=== PATIENT | male | born 1935 | race Caucasian/White ===

== ENCOUNTER 2020-02-25 20:28 | Emergency (ER) | payer MEDICARE, OTHER ==
[~2020-02-25] VITALS: Ht 182.9 cm; Wt 59.0 kg
[2020-02-25 21:00] LABS: CLARITY,URINE HAZY (CLEAR); COLOR,URINE YELLOW (YELLOW); LEUKOCYTE ESTERASE ,URINE SMALL (NEGATIVE); NITRITE,URINE POSITIVE (NEGATIVE)
[2020-02-25 21:01] LABS: BILIRUBIN,URINE NEGATIVE (NEGATIVE); KETONES,URINE NEGATIVE (NEGATIVE); PROTEIN,URINE DIPSTICK >=300 (NEGATIVE); URINE UROBILINOGEN 0.2 mg/dL (0.2 - 1)
[2020-02-25 21:12] LABS: BACTERIA,URINE MANY /HPF; WBC,URINE (MAN) 21-50 /HPF (0-5)
--- NOTE | 2020-02-25 21:22 | NUR ---
Daughter (Cata) left phone number if needed [phone]
[2020-02-25 21:44] LABS: BASOPHILS % 0.2 % (0.0-1.0); EOSINOPHILS % 0.3 % (0.0-6.0); HEMATOCRIT 30.3 % (38.2-49.6); LYMPHOCYTES # (AUTO) 1.4 (1.0-3.2); LYMPHOCYTES % 15.5 % (18.0-39.1); MEAN CORPUSCULAR HEMOGLOBIN 32.6 pg (28-32); MEAN CORPUSCULAR VOLUME 98.7 fL (81-99); MONOCYTES # (AUTO) 0.6 (0.2-0.8); MONOCYTES % 6.8 % (4.4-11.3); NEUTROPHILS # (AUTO) 6.9 (2.1-6.9); NEUTROPHILS % 76.5 % (38.7-80.0); PLATELET COUNT 241 x10e3/uL (140-360); RED BLOOD COUNT 3.07 x10e6/uL (4.3-5.7); RED CELL DISTRIBUTION WIDTH 15.8 % (11.7-14.4)
[2020-02-25] MEDS ORDERED: CIPROFLOXACIN 400 MG/D5W 200ML 200 ML IV SCH (22:00)
[2020-02-25 22:04] LABS: ALBUMIN 2.8 g/dL (3.5-5.0); ALBUMIN/GLOBULIN RATIO 0.8 (0.8-2.0); ANION GAP 15.2 mmol/L (8-16); CREATININE, SERUM 3.13 mg/dL (0.72-1.25); POTASSIUM 4.2 mmol/L (3.5-5.1)
[2020-02-25 22:10] LABS: CREATINE KINASE MB 5.5 ng/mL (0-5.0)
[2020-02-25] MEDS ORDERED: LORAZEPAM INJ 2 MG/ML VIAL IV ONE (22:30)
[2020-02-25] MEDS ORDERED: LORAZEPAM INJ 2 MG/ML VIAL ONE (22:30)
--- NOTE | 2020-02-25 23:44 | Diagnostic Imaging Report ---
EXAMINATION: CHEST SINGLE (PORTABLE) INDICATION: Dementia. COMPARISON: None FINDINGS: TUBES and LINES: None. LUNGS: Lungs are well inflated. Mild bibasilar patchy opacities. No evidence of lobar pneumonia. Calcified granulomas. PLEURA: No pleural effusion or pneumothorax. HEART AND MEDIASTINUM: The cardiomediastinal silhouette is unremarkable. There are atherosclerotic calcifications within the aorta. Calcified left hilar lymph nodes. BONES AND SOFT TISSUES: No acute osseous abnormality. Diffuse osteopenia. UPPER ABDOMEN: No free air under the diaphragm. IMPRESSION: Mild patchy bibasilar opacities, likely atelectasis. Infection is possible in the appropriate clinical setting. No evidence of lobar pneumonia. Signed by: Dr. Karen Bell MD on 02/25/2020 11:41 PM
--- NOTE | 2020-02-25 23:56 | Diagnostic Imaging Report ---
EXAM: CT Abdomen and Pelvis WITHOUT contrast INDICATION: Abdominal pain. COMPARISON: None. TECHNIQUE: Abdomen and pelvis were scanned utilizing a multidetector helical scanner from the lung base to the pubic symphysis without administration of IV contrast. Absence of intravenous contrast decreases sensitivity for detection of focal lesions and vascular pathology. Coronal and sagittal reformations were obtained. Routine protocol was performed. IV CONTRAST: None. ORAL CONTRAST: None. RADIATION DOSE: Total DLP: 460.2 mGy*cm Estimated effective dose: (DLP x 0.015 x size factor) mSv COMPLICATIONS: None FINDINGS: Examination is somewhat limited by motion and streak artifact. LOWER THORAX: Tiny 2 mm solid nodule along the right major fissure on series 2, image 11, which may represent an intrafissural lymph node. There are mild patchy/tree-in-bud opacities within the lingula and left lower lobe. Mild coronary atherosclerosis. HEPATOBILIARY: No focal hepatic lesions. No biliary ductal dilation. GALLBLADDER: Cholelithiasis without evidence of cholecystitis. SPLEEN: No splenomegaly. PANCREAS: Atrophic. No evidence of mass. ADRENALS: Possible 1.3 cm hypodense right adrenal nodule (series 2, image 22; 0 HU), compatible with adrenal adenoma. KIDNEYS/URETERS: No evidence of hydronephrosis or stone. Bilateral renal cysts. Additional subcentimeter bilateral renal hypodensities are too small to characterize, but likely represent cysts. Subcentimeter bilateral hyperdense lesions, which may represent hemorrhagic or proteinaceous cysts. There is a 1.1 cm mildly hyperdense lesion in the posterior aspect of the left mid pole kidney on series 2, image 28 (35 HU). GI TRACT: No abnormal distention, wall thickening, or evidence of bowel obstruction. Appendix is normal. Moderate amount of stool in the colon. PELVIC ORGANS/BLADDER: Limited evaluation secondary to streak artifact. Plaza catheter terminates in the bladder. Air within the bladder, likely iatrogenic. LYMPH NODES: No lymphadenopathy. VESSELS: There is mild atherosclerotic disease in the aorta and major arterial branches. PERITONEUM / RETROPERITONEUM: No free air or fluid. BONES: No acute osseous abnormality. Partially seen left total hip arthroplasty. SOFT TISSUES: Unremarkable. IMPRESSION: No evidence of acute abnormality in the abdomen or pelvis. Bilateral renal cystic lesions as above, some of which are indeterminate. Possible 1.1 cm mildly hyperdense cyst versus solid mass in the left mid pole kidney. A follow-up nonemergent renal protocol CT or MRI is recommended for further evaluation. Mild patchy/tree-in-bud opacities in the lingula and left lower lobe, likely representing small foci of aspiration. Signed by: Dr. Karen Bell MD on 02/25/2020 11:53 PM
--- NOTE | 2020-02-26 00:21 | NUR ---
[facility] called for transport at this time. ETA 30 minutes.
[2020-02-26 00:22] VITALS: BP 152/89
--- NOTE | 2020-02-26 00:52 | NUR ---
Wounds to bilateral arms cleaned and wrapped with non adherent dressings, Kerlex and Coband.
--- NOTE | 2020-02-26 01:14 | NUR ---
[facility] called at this time for ETA. Dispatch states approx 7-10 minutes.
--- NOTE | 2020-02-26 01:36 | NUR ---
Spoke to Cata and notified [facility] was here to transport patient. Instructed on antibiotic prescription.
== END 2020-02-26 01:39 | disposition home or self-care (01) ==
LOC: ER 20:28
DX: R10.33 Periumbilical pain (principal); R33.9 Retention of urine, unspecified; N30.91 Cystitis, unspecified with hematuria; N28.9 Disorder of kidney and ureter, unspecified; F03.90 Unspecified dementia, unspecified severity, without behavioral disturbance, psychotic disturbance, mood disturbance, and anxiety; S51.812A Laceration without foreign body of left forearm, initial encounter; S51.811A Laceration without foreign body of right forearm, initial encounter; Z96.642 Presence of left artificial hip joint
CPT/HCPCS: 36415; 51702; 71045; 74176; 80053; 81001; 82550; 82553; 83690; 83880; 84484; 85025; 87086; 87186; 99284; J0744; J2060; 51700

== ENCOUNTER 2020-02-28 00:02 | Inpatient (IN) | payer OTHER ==
[~2020-02-28] VITALS: Ht 182.9 cm; Wt 58.2 kg
--- OUTSIDE RECORDS SUMMARY | 2020-02-28 00:05 | XMS REPORT ---
Author [facility] Address Unknown Phone Unavailable Care Team Providers Care Ham Stringer Name Role Phone YUNIER MEDEIROS, MICHAEL PP GRACE AWAN Unavailable Unavailable Payers Payer Name Policy Type Policy Number Effective Date Expiration Date [facility] [id number] 2019 00:00:00 Problems This patient has no known problems. Allergies, Adverse Reactions, Alerts This patient has no known allergies or adverse reactions. Medications This patient has no known medications. Procedures and Interventions Procedure Date / Time Performed Performing Clinician CT of abdomen and pelvis without contrast 2020-02-25 00:00:00 GRACE AWAN Encounters Start Date/Time End Date/Time Encounter Type Admission Type Attending Clinicians Care Facility Care Department Encounter ID 2020-02-25 20:28:00 2020-02-26 01:39:00 Departed Emergency Room 1 GRACE AWAN [facility] [id number] 2020-02-01 23:34:00 2020-02-01 21:46:00 Inpatient E [facility] 7503 Results Test Description Test Time Test Comments Text Results Atomic Results Result Comments CT ABDOMEN/PELVIS WO 2020-02-25 23:41:00 [facility] [address] [place], [place] [address] Patient Name: CINTIA NORTH SR MR #: [id number] : 1935 [facility]: 84[id number] Req #: [id number] Adm Physician: Ordered by: GRACE AWAN DO Report #: [id number] Location: ER Room/Bed: Procedure: [id number] CT/CT ABDOMEN/PELVIS WO Exam Date: 02/25/20 Exam Time: 2238 REPORT STATUS: Signed EXAM: CT Abdomen and Pelvis WITHOUT contrast IN DICATION: Abdominal pain. COMPARISON: None. TECHNIQUE: Abdomen and pelvis were scanned utilizing a multidetector helical scanner from the lung base to the pubic symphysis without administration of IV contrast. Absence of intravenous contrast decreases sensitivity for detection of focal lesions and vascular pathology. Coronal and sagittal reformations were obtained. Routine protocol was performed. IV CONTRAST: None. ORAL CONTRAST: None. RADIATION DOSE: Total DLP: 460.2 mGy*cm Estimated effective dose: (DLP x 0.015 x size factor) mSv COMPLICATIONS: None FINDINGS: Examination is somewhat limited by motion and streak artifact. LOWER THORAX: Tiny 2 mm solid nodule along the right major fissure on series 2, image 11, which may represent an intrafissural lymph node. There are mild patchy/tree-in-bud opacities within the lingula and left lower lobe. Mild coronary atherosclerosis. HEPATOBILIARY: No focal hepatic lesions. No biliary ductal dilation. GALLBLADDER: Cholelithiasis without evidence of cholecystitis. SPLEEN: No splenomegaly. PANCREAS: Atrophic. No evidence of mass. ADRENALS: Possible 1.3 cm hypodense right adrenal nodule (series 2, image 22; 0 HU), compatible with adrenal adenoma. KIDNEYS/URETERS: No evidence of hydronephrosis or stone. Bilateral renal cysts. Additional subcentimeter bilateral renal hypodensities are too small to characterize, but likely represent cysts. Subcentimeter bilateral hyperdense lesions, which may represent hemorrhagic or proteinaceous cysts. There is a 1.1 cm mildly hyperdense lesion in the posterior aspect of the left mid pole kidney on series 2, image 28 (35 HU). GI TRACT: No abnormal distention, wall thickening, or evidence of bowel obstruction. Appendix is normal. Moderate amount of stool in the colon. PELVIC ORGANS/BLADDER: Limited evaluation secondary to streak artifact. Plaza catheter terminates in the bladder. Air within the bladder, likely iatrogenic. LYMPH NODES: No lymphadenopathy. VESSELS: There is mild atherosclerotic disease in the aorta and major arterial branches. PERITONEUM / RETROPERITONEUM: No free air or fluid. BONES: No acute osseous abnormality. Partially seen left total hip arthroplasty. SOFT TISSUES: Unremarkable. IMPRESSION: No evidence of acute abnormality in the abdomen or pelvis. Bilateral renal cystic lesions as above, some of which are indeterminate. Possible 1.1 cm mildly hyperdense cyst versus solid mass in the left mid pole kidney. A follow-up nonemergent renal protocol CT or MRI is recommended for further evaluation. Mild patchy/tree-in-bud opacities in the lingula and left lower lobe, likely representing small foci of aspiration. Signed by: Dr. Zarina Bo MD on 02/25/2020 11:53 PM Dictated By: ZARINA BO MD 52 Transcribed By: NINA on 02/25/202352 COPY TO: GRACE AWAN DO CHEST SINGLE (PORTABLE) 2020-02-25 23:38:00 [place] [address] Patient Name: CINTIA NORTH MR #: [id number] : 1935 Age/Sex: 84/M Req #: [id number] Adm Physician: Ordered by: GRACE AWAN DO Report #: [id number] Location: ER Room/Bed: Procedure: [id number] DX/CHEST SINGLE (PORTABLE) Exam Date: 02/25/20 Exam Time: 2218 REPORT STATUS: Signed EXAMINATION: CHEST SINGLE (PORTABLE) DOROTEO CATION: Dementia. COMPARISON: None FINDINGS: TUBES and LINES: None. LUNGS: Lungs are well inflated. Mild bibasilar patchy opacities. No evidence of lobar pneumonia. Calcified granulomas. PLEURA: No pleural effusion or pneumothorax. HEART AND MEDIASTINUM: The cardiomediastinal silhouette is unremarkable. There are atherosclerotic calcifications within the aorta. Calcified left hilar lymph nodes. BONES AND SOFT TISSUES: No acute osseous abnormality. Diffuse osteopenia. UPPER ABDOMEN: No free air under the diaphragm. IMPRESSION: Mild patchy bibasilar opacities, likely atelectasis. Infection is possible in the appropriate clinical setting. No evidence of lobar pneumonia. Signed by: Dr. Zarina Bo MD on 02/25/2020 11:41 PM Dictated By: ZARINA BO MD 40 Transcribed By: NINA on 02/25/202340 COPY TO: GRACE AWAN DO B-Type Natriuretic Peptide 2020-02-25 22:23:00 B-Type Natriuretic Peptide (test sccj=28801-2) 177.6 0-100 Creatine Kinase HT5469-20-04 22:12:00* Test Item Value Reference Range Comments Creatine Kinase MB (test zkhh=86976-9) 5.50 0-5.0 Troponin H4335-01-42 22:12:00* Test Item Value Reference Range Comments Troponin I (test pgtl=10465-6) 0.014 0-0.300 Sodium Awbyi5702-24-98 22:05:00* Test Item Value Reference Range Comments Sodium Level (test unoo=1934-2) 146 136-145 Potassium Xzxvb2367-77-49 22:05:00* Test Item Value Reference Range Comments Potassium Level (test rmoj=2912-1) 4.2 3.5-5.1 Chloride Hkkor8241-81-21 22:05:00* Test Item Value Reference Range Comments Chloride Level (test ewzo=4910-5) 111 98-107 Carbon Dioxide Eoiul4641-84-03 22:05:00* Test Item Value Reference Range Comments Carbon Dioxide Level (test fjam=0984-0) 24 22-29 Anion Txd1068-03-66 22:05:00* Test Item Value Reference Range Comments Anion Gap (test aeju=95719-4) 15.2 8-16 Blood Urea Fhprciyg2277-83-55 22:05:00* Test Item Value Reference Range Comments Blood Urea Nitrogen (test hzgn=5386-8) 60 7-26 Wbefshqpxp4829-63-00 22:05:00* Test Item Value Reference Range Comments Creatinine (test rzni=4527-9) 3.13 0.72-1.25 BUN/Creatinine Djkhc2431-13-37 22:05:00* Test Item Value Reference Range Comments BUN/Creatinine Ratio (test vzfq=1033-4) 19 6-25 Estimat Glomerular Filtration Tajy8062-73-89 22:05:00* Test Item Value Reference Range Comments Estimat Glomerular Filtration Rate (test reto=781915573) 19 >60 Ranges were taken from the National Kidney Disease Education Program and the [facility] literature.Reference ranges:60 or greater: Cmnzkg00-19 ( for 3 consecutive months): Chronic kidney disease 15 or less: Kidney failure Glucose Drbcc6117-53-85 22:05:00* Test Item Value Reference Range Comments Glucose Level (test fubr=LMA9033) 112 74-118 Calcium Nuabq0201-12-46 22:05:00* Test Item Value Reference Range Comments Calcium Level (test yaae=91025-1) 9.0 8.4-10.2 Total Nceusgyqf2213-76-91 22:05:00* Test Item Value Reference Range Comments Total Bilirubin (test iwqt=3817-6) 0.8 0.2-1.2 Aspartate Amino Transf (AST/SGOT)2020-02-25 22:05:00* Test Item Value Reference Range Comments Aspartate Amino Transf (AST/SGOT) (test code=Aspartate Amino Transf (AST/SGOT)) 64 5-34 Alanine Aminotransferase (ALT/SGPT)2020-02-25 22:05:00* Test Item Value Reference Range Comments Alanine Aminotransferase (ALT/SGPT) (test dqwb=3369-7) 35 0-55 Total Etjalml4323-63-78 22:05:00* Test Item Value Reference Range Comments Total Protein (test voyw=7281-4) 6.3 6.5-8.1 Ikqcdxk6681-19-69 22:05:00* Test Item Value Reference Range Comments Albumin (test yooo=9615-5) 2.8 3.5-5.0 Alxtvcka9066-20-79 22:05:00* Test Item Value Reference Range Comments Globulin (test uqfg=86416-4) 3.5 2.3-3.5 Albumin/Globulin Cceac4752-43-29 22:05:00* Test Item Value Reference Range Comments Albumin/Globulin Ratio (test buda=6218-4) 0.8 0.8-2.0 Alkaline Ihfchctntpf3672-31-16 22:05:00* Test Item Value Reference Range Comments Alkaline Phosphatase (test lpwu=5283-8) 107 40-150 Creatine Qlzrlw8503-73-08 22:05:00* Test Item Value Reference Range Comments Creatine Kinase (test lndh=9937-8) 489 30-200 Fchfnw2070-47-55 22:05:00* Test Item Value Reference Range Comments Lipase (test yndr=1872-5) 70 8-78 White Blood Znbzh1124-54-50 21:45:00* Test Item Value Reference Range Comments White Blood Count (test tyrk=7574-5) 9.02 4.8-10.8 Red Blood Ujyid5451-70-78 21:45:00* Test Item Value Reference Range Comments Red Blood Count (test bgun=062-1) 3.07 4.3-5.7 Pwjyspunnt8554-56-56 21:45:00* Test Item Value Reference Range Comments Hemoglobin (test noxu=81398-9) 10.0 14.0-18.0 Lunproukts3996-81-41 21:45:00* Test Item Value Reference Range Comments Hematocrit (test maaf=2821-2) 30.3 38.2-49.6 Mean Corpuscular Qwgyar3088-50-75 21:45:00* Test Item Value Reference Range Comments Mean Corpuscular Volume (test otrm=568-4) 98.7 81-99 Mean Corpuscular Wkhsziqtgr2129-20-00 21:45:00* Test Item Value Reference Range Comments Mean Corpuscular Hemoglobin (test opck=167-8) 32.6 28-32 Mean Corpuscular Hemoglobin Ckquakg0601-39-92 21:45:00* Test Item Value Reference Range Comments Mean Corpuscular Hemoglobin Concent (test bzuw=040-1) 33.0 31-35 Red Cell Distribution Ehikx2541-41-03 21:45:00* Test Item Value Reference Range Comments Red Cell Distribution Width (test rbwz=35170-5) 15.8 11.7-14.4 Platelet Jvdtx6260-19-17 21:45:00* Test Item Value Reference Range Comments Platelet Count (test gupi=760-5) 241 140-360 Neutrophils (%) (Auto)2020-02-25 21:45:00* Test Item Value Reference Range Comments Neutrophils (%) (Auto) (test ejnm=10060-6) 76.5 38.7-80.0 Lymphocytes (%) (Auto)2020-02-25 21:45:00* Test Item Value Reference Range Comments Lymphocytes (%) (Auto) (test ukmy=844-2) 15.5 18.0-39.1 Monocytes (%) (Auto)2020-02-25 21:45:00* Test Item Value Reference Range Comments Monocytes (%) (Auto) (test osbs=8349-8) 6.8 4.4-11.3 Eosinophils (%) (Auto)2020-02-25 21:45:00* Test Item Value Reference Range Comments Eosinophils (%) (Auto) (test dcrx=504-9) 0.3 0.0-6.0 Basophils (%) (Auto)2020-02-25 21:45:00* Test Item Value Reference Range Comments Basophils (%) (Auto) (test rggl=105-1) 0.2 0.0-1.0 IM GRANULOCYTES %2020-02-25 21:45:00* Test Item Value Reference Range Comments IM GRANULOCYTES % (test code=IM GRANULOCYTES %) 0.7 0.0-1.0 Neutrophils # (Auto)2020-02-25 21:45:00* Test Item Value Reference Range Comments Neutrophils # (Auto) (test lshx=647-4) 6.9 2.1-6.9 Lymphocytes # (Auto)2020-02-25 21:45:00* Test Item Value Reference Range Comments Lymphocytes # (Auto) (test gpix=97837-3) 1.4 1.0-3.2 Monocytes # (Auto)2020-02-25 21:45:00* Test Item Value Reference Range Comments Monocytes # (Auto) (test fqni=381-9) 0.6 0.2-0.8 Eosinophils # (Auto)2020-02-25 21:45:00* Test Item Value Reference Range Comments Eosinophils # (Auto) (test mqtd=777-8) 0.0 0.0-0.4 Basophils # (Auto)2020-02-25 21:45:00* Test Item Value Reference Range Comments Basophils # (Auto) (test quqp=191-6) 0.0 0.0-0.1 Absolute Immature Granulocyte (zwmc5715-98-12 21:45:00* Test Item Value Reference Range Comments Absolute Immature Granulocyte (auto (test code=Absolute Immature Granulocyte (auto) 0.06 0-0.1 Urine FRW1195-36-44 21:12:00* Test Item Value Reference Range Comments Urine WBC (test nfcy=9966-9) 21-50 0-5 Urine YBK8720-89-93 21:12:00* Test Item Value Reference Range Comments Urine RBC (test euhh=48922-7) 11-20 0-5 Urine Oqoroohj3283-14-73 21:12:00* Test Item Value Reference Range Comments Urine Bacteria (test yyxx=24687-9) MANY NONE Urine Epithelial Qjiyt4658-67-74 21:12:00* Test Item Value Reference Range Comments Urine Epithelial Cells (test lalj=52065-7) NONE NONE Urine Mkkeh7038-69-81 21:01:00* Test Item Value Reference Range Comments Urine Color (test sozk=6816-5) YELLOW YELLOW Urine Xxsoikl7427-39-33 21:01:00* Test Item Value Reference Range Comments Urine Clarity (test tbcm=09959-2) HAZY CLEAR Urine Specific Nogxyvw4209-16-24 21:01:00* Test Item Value Reference Range Comments Urine Specific [place] (test nstm=9492-1) 1.025 1.010-1.025 Urine qK7600-46-43 21:01:00* Test Item Value Reference Range Comments Urine pH (test yucm=40156-6) 5.5 5-7 Urine Leukocyte Kdtbeakw2266-62-54 21:01:00* Test Item Value Reference Range Comments Urine Leukocyte Esterase (test tikh=5824-2) SMALL NEGATIVE Urine Gjqvyib4698-81-41 21:01:00* Test Item Value Reference Range Comments Urine Nitrite (test pfco=67628-8) POSITIVE NEGATIVE Urine Dsrfmgo8490-83-35 21:01:00* Test Item Value Reference Range Comments Urine Protein (test ewbl=8494-6) >=300 NEGATIVE Urine Glucose (UA)2020-02-25 21:01:00* Test Item Value Reference Range Comments Urine Glucose (UA) (test poon=8546-4) NEGATIVE NEGATIVE Urine Lqzlxrj3341-11-36 21:01:00* Test Item Value Reference Range Comments Urine Ketones (test ebrd=93921-1) NEGATIVE NEGATIVE Urine Kswnpimmdkxu6857-24-19 21:01:00* Test Item Value Reference Range Comments Urine Urobilinogen (test oohh=37700-0) 0.2 0.2-1 Urine Lbsvialau7235-45-86 21:01:00* Test Item Value Reference Range Comments Urine Bilirubin (test omxx=5285-1) NEGATIVE NEGATIVE Urine Yjpzq4592-41-91 21:01:00* Test Item Value Reference Range Comments Urine Blood (test ynwd=19704-7) 4+ NEGATIVE
[2020-02-28] MEDS ORDERED: LORAZEPAM INJ 2 MG/ML VIAL IV ONE (00:15)
[2020-02-28] MEDS ORDERED: LORAZEPAM INJ 2 MG/ML VIAL ONE (00:16)
[2020-02-28] MEDS ORDERED: ZIPRASIDONE 20 MG VIAL IM STA (00:18)
[2020-02-28 01:00] LABS: BASOPHILS % 0.1 % (0.0-1.0); EOSINOPHILS % 0.1 % (0.0-6.0); HEMATOCRIT 30.6 % (38.2-49.6); HEMOGLOBIN 9.7 g/dL (14.0-18.0); LYMPHOCYTES # (AUTO) 1.3 (1.0-3.2); LYMPHOCYTES % 9.6 % (18.0-39.1); MEAN CORPUSCULAR HEMOGLOBIN 32.1 pg (28-32); MEAN CORPUSCULAR HGB CONC 31.7 g/dL (31-35); MEAN CORPUSCULAR VOLUME 101.3 fL (81-99); MONOCYTES # (AUTO) 1.1 (0.2-0.8); MONOCYTES % 7.8 % (4.4-11.3); NEUTROPHILS # (AUTO) 10.9 (2.1-6.9); NEUTROPHILS % 81.6 % (38.7-80.0); PLATELET COUNT 220 x10e3/uL (140-360); RED BLOOD COUNT 3.02 x10e6/uL (4.3-5.7); RED CELL DISTRIBUTION WIDTH 16.3 % (11.7-14.4)
[2020-02-28 01:05] LABS: ALBUMIN 2.9 g/dL (3.5-5.0); ALBUMIN/GLOBULIN RATIO 0.8 (0.8-2.0); ANION GAP 14.5 mmol/L (8-16); CALCIUM 9.5 mg/dL (8.4-10.2); CREATININE, SERUM 3.15 mg/dL (0.72-1.25); POTASSIUM 4.5 mmol/L (3.5-5.1)
[2020-02-28] MEDS: PIPER-TAZ 3.375 GM 50 ML IV SCH ×5 (01:12→23:30)
--- NOTE | 2020-02-28 01:21 | NUR ---
20 FR COUDE CATHETER INSERTED PER ORDERS USING STERILE TECHNIQUE. 200CC CLOUDY DARK VEL BLOOD TINGED URINE RETURN NOTED. CATHETER SECURED TO R THIGH.
[2020-02-28 01:52] LABS: BILIRUBIN,URINE SMALL (NEGATIVE); CLARITY,URINE CLOUDY (CLEAR); COLOR,URINE AMBER (YELLOW); KETONES,URINE NEGATIVE (NEGATIVE); LEUKOCYTE ESTERASE ,URINE 1+ (NEGATIVE); NITRITE,URINE NEGATIVE (NEGATIVE); PROTEIN,URINE DIPSTICK >=300 (NEGATIVE); URINE UROBILINOGEN 0.2 mg/dL (0.2 - 1)
[2020-02-28 01:57] LABS: BACTERIA,URINE FEW /HPF; EPITHELIAL CELLS,URINE FEW /LPF; RBC,URINE >50 /HPF (0-5)
[2020-02-28] MEDS: SODIUM CHLORIDE 0.9% 1000ML 1,000 ML IV SCH ×4 (02:00→21:15)
--- NOTE | 2020-02-28 07:10 | NUR ---
RCD PT FROM ER BY BED PT IS CONFUSED 1:1 SITTER WITH PT ,IV PATENT AND RUNNING 120 ML ,PT IN VILLAFANA WRAPPED WITH COBAN BY ORDER FROM DR FAYE BECAUSE PT TRYING TO PULL OUT THE VILLAFANA ,ADMISSION ASSESSMENT AND HISTORY DONE ( TALKED TO HIS DAUGHTER IN LOW ,LATOYA ) BED LOW AND LOCKED CALL LIGHT IN REACH
[2020-02-28 08:35] VITALS: BP 154/98
[2020-02-28 10:00] VITALS: BP 154/98
[2020-02-28] MEDS ORDERED: ACETAMINOPHEN 650 MG SUPP PR PRN (10:00)
[2020-02-28] MEDS ORDERED: ONDANSETRON HCL INJ 2MG/ML 2ML 2 MG/ML VIAL IV PRN (10:00)
[2020-02-28] MEDS ORDERED: ZIPRASIDONE 20 MG VIAL IM PRN (10:00)
--- NOTE | 2020-02-28 10:00 | NUR ---
ADMISSION HISTORY DONE BY TALKING TO HIS DAUGHTER IN LOW (TELEPHONE ) BY LATOYA
[2020-02-28] MEDS: MEMANTINE 10 MG TAB PO SCH ×2 (10:30→17:00)
--- NOTE | 2020-02-28 10:59 | History and Physical ---
PRIMARY CARE PHYSICIAN: Donnell Hicks MD CONSULTANTS: Eran Gonzalez MD CHIEF COMPLAINT: Urinary retention. The patient pulled out Plaza catheter multiple times. HISTORY OF PRESENT ILLNESS: This is an 84-year-old male, recently was admitted at [facility]. At that time, the patient had left hip fractures. He underwent left hip surgery and then subsequently have urinary retention. He underwent TURP procedures, it was approximately two weeks ago and after that, a Plaza catheter was placed. The patient has been persistent urinary retention. He pulled out his Plzaa catheter multiple times in the hospital. The patient's spouse, Mrs. Hayden, refused to place the patient. Therefore, the patient went home and apparently, at home, the patient pulled out his Plaza catheter again and this time, with urinary retention and Dr. Eran Gonzalez told the patient's family to bring the patient here at [facility]. Plaza catheter placed. At baseline, this is a very demented patient. He is cachectic. He is not able to give any coherent history. He is moving his extremity. He has severe atrophy of the both upper and lower extremity. The patient has a Plaza catheter in place. He has left hip recent surgery. PAST MEDICAL HISTORY: Advanced dementia. Adult failure to thrive with progressive weight loss. His BMI is about 17. Plaza catheter in place. Recent left hip surgery, urinary retention, recent TURP procedures, urinary retention with recurrent pulling the catheter out due to dementia with agitation. Chronic kidney disease. SOCIAL HISTORY: The patient recently discharged from [facility] and was staying at home with spouse. ALLERGIES: NO KNOWN ALLERGIES. HOME MEDICATIONS: Not available. PHYSICAL EXAMINATION: VITAL SIGNS: Temperature is 97, blood pressure 149/92, pulse rate is 80, and respirations 18. GENERAL: The patient is in no acute distress and awake. HEENT: Normocephalic and atraumatic. Anicteric. NECK: Supple grossly. PULMONARY: Diminished breath sounds. CARDIOVASCULAR: Regular rate and rhythm. ABDOMEN: Cachexia. Plaza catheter in place. EXTREMITIES: Atrophy bilaterally. Left hip surgery. NEUROLOGIC: Advanced dementia. No focal deficit. LABORATORY DATA: Sodium 148, potassium 4.5, chloride 114, bicarb 24, BUN 51 and creatinine is 3.1, glucose 118. WBC 13, hemoglobin 9.7, hematocrit 30.6, and platelets is 220. IMPRESSION: 1. Advanced dementia with agitation. 2. Recurrent Plaza catheter removed by the patient due to agitation. 3. Urinary retention, status post transurethral resection of the prostate. 4. Status post left hip surgery, recently at another hospital, [facility]. 5. Medical debility. 6. Functional decline. 7. Progressive weight loss with adult fjqlfkc-bj-cvoftu, uhcumkcd-zv-knfdss protein-calorie deficit malnutrition with BMI of 17. PLAN: Continue with antibiotics. IV fluid support. Monitor renal output. Protect Plaza catheter. May need suprapubic catheter, but the patient may pull that as well. May, however, be able to protect it better. Continue with home medication. Repeat lab work in the morning. Skin care, daily turn the patient. Feeding, aspiration precaution, and fall precaution. MD FABIENNE Barker/FLAQUITO /[id number]
[2020-02-28 11:04] VITALS: BP 154/98
--- NOTE | 2020-02-28 11:06 | NUR ---
WOUND CARE CONSULTATION PUP SCREEN RE: Age= 84 Johan Score = 13 Visco Mattress / Alternating Pressure Air Mattress Conservative Moderate Strict PUP PATIENT VISIT / SKIN CHECK: -NO PRESSURE RELATED WOUNDS HEALING LEFT HIP SURGICAL WOUND NOTED RECOMMENDATION: - ASSIST IN NUTRITIONAL SUPPORT FOR HEALING AND SKIN MAINTENANCE - Alternating Pressure Air Mattress - Bilateral Heel Protectors / Offload Heels with Pillows - Turn and Reposition Every 2 Hours Addendum: 02/28/20 at 1108 by Dave Mobley RN Amended: Links added.
[2020-02-28 15:55] VITALS: BP_SYST 107; BP_SYST 150; BP_DIAS 64; BP_DIAS 78
--- NOTE | 2020-02-28 17:01 | NUR ---
DAUGHTER IN LAW LATOYA [phone] CALLED AND ASKED IF [facility] WOULD BE AN APPROPRIATE PLACEMENT. SHE STATES SHE REALLY DOES NOT WANT HIM TO GO TO A HALFWAY IF HE IS GOING TO ACT OUT. SHE IS HOPEFUL CAN SEND TO [facility] AND GET HIS MEDICATIONS UNDER CONTROL SO HE CAN RETURN HOME. LET HER KNOW WOULD SPEAK WITH DOCTOR AND ASK THEN CALL HER BACK TO DISCUSS PLAN OF CARE.
--- NOTE | 2020-02-28 19:00 | NUR ---
Patient visited in room during nursing rounds. Patient alert and oriented x0. Pt appears very agitated as evidenced by multiple attempts to pull out medical devices (e.g. IV line, quinones catheter). Pt also has multiple skin tears especially on both upper extremities and they easily bleed. Sitter at bedside helping provide 1:1 care. Nurse (Benson) plan to medicate pt for agitation and dress wounds tonight. Call muse within reach. Bed alarm active.
--- NOTE | 2020-02-28 19:19 | NUR ---
PT RESTING ON BED BED SIDE REPORT GIVEN TO ONCOMING NURSE
--- NOTE | 2020-02-28 19:30 | NUR ---
Both arms of patient showing multiple skin tears and were dressed with gauze (4x4 or telfa), covered with kerlix and coban. Pt still screaming and attempting to take out medical devices.
--- NOTE | 2020-02-28 19:48 | NUR ---
Pt given Geodon 5mg IM via right deltoid. Both arms had to be held down while medication was given. Pt showing signs of agitation and combativeness.
[2020-02-28 20:00] VITALS: BP 153/80
[2020-02-28 21:00] VITALS: BP 153/80
[2020-02-28] MEDS: SODIUM CHLORIDE 0.45% 1,000 ML IV SCH (21:15)
--- NOTE | 2020-02-28 22:29 | NUR ---
Call attempt and left voice message to Dr. Ordonez to report patient still very agitated 2 hours after Geodon dose was given. Awaiting on MD call back or reply.
--- NOTE | 2020-02-28 23:03 | NUR ---
Received new med orders from Dr. Ordonez. One med to help with pt agitation was Lorazepam 1mg IV Q6hr prn.
[2020-02-28] MEDS: LORAZEPAM INJ 2 MG/ML VIAL IV PRN (23:30)
--- NOTE | 2020-02-28 23:30 | NUR ---
Pt given Lorazepam 1mg IV and will monitor patient's demeanor and affect.
[2020-02-29] VITALS (9 sets, daily range): BP systolic 141–195; BP diastolic 85–105
--- NOTE | 2020-02-29 00:40 | NUR ---
Pt asleep at this time and appear calm. Sitter at bedside watching over pt.
[2020-02-29] MEDS: LORAZEPAM INJ 2 MG/ML VIAL IV PRN (05:48)
[2020-02-29 05:59] LABS: BASOPHILS % 0.4 % (0.0-1.0); EOSINOPHILS # (AUTO) 0.2 (0.0-0.4); EOSINOPHILS % 2.1 % (0.0-6.0); HEMATOCRIT 28.2 % (38.2-49.6); HEMOGLOBIN 9.2 g/dL (14.0-18.0); LYMPHOCYTES # (AUTO) 1.2 (1.0-3.2); MEAN CORPUSCULAR HEMOGLOBIN 32.9 pg (28-32); MEAN CORPUSCULAR HGB CONC 32.6 g/dL (31-35); MEAN CORPUSCULAR VOLUME 100.7 fL (81-99); MONOCYTES # (AUTO) 0.6 (0.2-0.8); MONOCYTES % 7.4 % (4.4-11.3); NEUTROPHILS # (AUTO) 5.9 (2.1-6.9); NEUTROPHILS % 74.7 % (38.7-80.0); PLATELET COUNT 190 x10e3/uL (140-360); RED CELL DISTRIBUTION WIDTH 16.1 % (11.7-14.4)
--- NOTE | 2020-02-29 06:00 | NUR ---
Patient cleaned all over body including perineal areas. Diaper changed. Linen changed. Dressing change for wounds done.
[2020-02-29 06:12] LABS: ANION GAP 8.9 mmol/L (8-16); CALCIUM 8.3 mg/dL (8.4-10.2); CREATININE, SERUM 2.47 mg/dL (0.72-1.25); POTASSIUM 3.9 mmol/L (3.5-5.1)
[2020-02-29] MEDS: PIPER-TAZ 3.375 GM 50 ML IV SCH ×4 (06:30→23:56)
--- NOTE | 2020-02-29 07:00 | NUR ---
BEDSIDE SHIFT REPORT RECEIVED FROM THE AUTOMATIC BUFFER RN. PT IS RESTING ON BED. EYES CLOSED. RESPIRATIONS EVEN AND NON LABORED. SITTER AT BEDSIDE. PT HAS MULTIPLE BRUISES ON BOTH HANDS. DRESSING IN PLACE. WOUND CARE CONSULT ALREADY PLACED. CALL LIGHT WITH IN EASY REACH. BED IS LOW AND LOCKED. SIDE RAILS X2. BED ALARM IS ON.
[2020-02-29] MEDS: MEMANTINE 10 MG TAB PO SCH (09:00)
[2020-02-29] MEDS ORDERED: OLANZAPINE 5 MG TAB PO SCH (09:00)
--- NOTE | 2020-02-29 10:34 | NUR ---
SPOKE WITH DR AWAN HE STATES OKAY TO START [facility]. PT IS NOT MEDICALLY STABLE AT THIS POINT BUT WILL FAX TO FACILITY AND SEND UPDATES ON TUESDAY TO DETERMINE IF PT READY AT THAT TIME. FAXED CLINICALS AND COVID FORM TO [phone]
[2020-02-29] MEDS: SODIUM CHLORIDE 0.45% 1,000 ML IV SCH ×2 (10:38→21:47)
--- NOTE | 2020-02-29 11:00 | NUR ---
WOUND CARE NURSE AT BEDSIDE.
[2020-02-29] MEDS ORDERED: OLANZAPINE 5 MG TAB PO PRN (16:00)
[2020-02-29] MEDS ORDERED: LORAZEPAM INJ 2 MG/ML VIAL IM PRN (16:00)
[2020-02-29] MEDS ORDERED: HALOPERIDOL LACTATE 5 MG/ML VIAL IM PRN (16:00)
--- NOTE | 2020-02-29 16:08 | NUR ---
WOUND CARE CONSULT FOR 84 Y YO MALE WITH HX OF UTI, URINARY RETENTION, AND RENAL FAILURE. PT BASELINE IS A DEMENTED PATIENT. PT PRESENTS CACHECTIC WITH SEVERE ATROPHY OF UPPER AND LOWER EXTREMITY. PT HAD LEFT HIP SX RECENTLY. ABDULAZIZ 17 0N MODERATE PUP STATUS AND INTERVENTIONS LABS: WBC- 7.93 HGB- 9.2 GLUCOSE 74 SKIN ASSESSMENT COMPLETE PATIENT PRESENTS WITH MULTIPLE SELF CAUSED ABRASIONS TO BILATERAL ARMS. MODERATE SEROUS SANGUINOUS DRAINAGE PRESENT. ABRASIONS WERE CAUSED LAST NIGHT PER FLOOR NURSE REPORT, PT IS COMBATIVE AND UNABLE TO FOLLOW COMMANDS. SITTER PRESENT IN ROOM DURING ASSESSMENT. RECOMMENDATIONS : NURSING TO CONTINUE TO MONITOR PATIENT AND KEEP SKIN CLEAN AND TO CONTINUE TO FOLLOW MODERATE PUP INTERVENTIONS. NURSING TO CLEAN BILATERAL ARMS ABRASIONS WITH NORMAL SALINE, APPLY BETADINE, APPLY XEROFORM AND MAXORB AG, THEN APPLY ABD PAD AND LIGHTLY WRAP WITH KERLIX AND LIGHTLY SECURE WITH COBAN DAILY. NURSING TO ASSIST IN NUTRITIONAL SUPPORT FOR HEALING AND SKIN MAINTENANCE, NURSING TO TURN AND TO REPOSITION PATIENT EVERY 2 HOURS. NURSING TO MAINTAIN ALTERNATING PRESSURE MATTRESS. NURSING TO CONSULT WOUND CARE NEEDED. Addendum: 02/29/20 at 1622 by Nilam Leiva RN Amended: Links added.
--- NOTE | 2020-02-29 18:45 | NUR ---
PAGED DR. AWAN AND REPORTED PT ELEVATED BP 172/105. HR 85. INFORMED DR ABOUT PT ELEVATED BP FOR THE DAY. NO MEDS PER THE CONTINUE MONITOR.
--- NOTE | 2020-02-29 18:47 | NUR ---
PT NOT TAKING ANY BP MEDS MEDS AT HOME PER THE DAUGHTER.
--- NOTE | 2020-02-29 18:48 | NUR ---
NO HOME MEDS PER THE DAUGHTER.
--- NOTE | 2020-02-29 19:40 | NUR ---
RECEIVED PATIENT IN REPORT. PATIENT RESTING IN BED AT THIS TIME. 1:1 SITTER PRESENT AND ACTIVELY CARING FOR PATIENT. IV TO L FA 20G ASYMPTOMATIC, INTACT, AND PATENT, RUNNING 1/2NS@100ML/HR. VILLAFANA DRAINING LIGHT VEL URINE TO GRAVITY, BAG HANGING ON BED, OFF OF FLOOR, SECURED TO LEG IN TWO PLACES TO ENSURE PATIENT DOES NOT PULL OFF. BILATERAL FOREARM DRESSINGS C/D/I, SOME WOUNDS ON HANDS NOTED FROM PATIENT SCRATCHING HIMSELF, SMALL AMOUNT OF SEROSANGUINEOUS DRAINAGE NOTED. ALLEVYN PATCH NOTED TO MID BACK AND SACRUM, BOTH C/D/I. NO ACUTE DISTRESS OR AGITATION NOTED AT THIS TIME. WILL CONTINUE TO MONITOR CLOSELY.
--- NOTE | 2020-02-29 19:45 | NUR ---
BEDSIDE SHIFT REPORT GIVEN TO THE PARTS EXPEDITER RN. PT DENIED FURTHER NEEDS.
[2020-02-29] MEDS: OLANZAPINE 5 MG TAB PO SCH (20:50)
--- NOTE | 2020-02-29 23:04 | Consultation ---
DATE OF CONSULTATION: 02/29/2020 REASON FOR CONSULTATION: To evaluate the patient's psychosis and dementia. HISTORY OF PRESENT ILLNESS: The patient is an 84-year-old male, admitted to the hospital for UTI. Psychiatric consultation is called to evaluate the patient's psychosis. As per in the medical record, the patient has dementia, failure to thrive, progressive weight loss. He also history of chronic kidney disease. Upon evaluation today, the patient is found to be lying in bed with a sitter in the room. He is lethargic. He is awake, but not opening his eyes or answering any question. His access to the IVs are on both arms wrap-around with bandages. As per nursing staff, the patient has been sleeping all day. Yesterday he was agitated and required multiple medications. The patient was started on Zyprexa scheduled twice a day, but has not received. Nursing staff reports that the patient received Geodon, but did not help with the agitation. PAST PSYCHIATRIC HISTORY: The patient has a history of dementia. Details unknown. FAMILY HISTORY: Unknown. SOCIAL HISTORY: Unknown. MENTAL STATUS EXAM: The patient is an elderly male. He is thin-looking. He is unable to answer questions. He is lethargic and with psychomotor retardation. Assessment is limited due to sedation. CURRENT MEDICATIONS: 1. Sodium chloride. 2. Ativan 1 mg IV q.6h as needed. 3. Geodon 5 mg IM q.6h as needed. 4. Zyprexa 2.5 mg p.o. b.i.d. 5. Namenda 5 mg p.o. b.i.d.. CURRENT LABS: WBC 7.93, hemoglobin 9.2, hematocrit 28.2, platelets 190. Sodium 148, potassium 3.9, chloride 119, CO2 of 24, BUN 41, ALT 33. ASSESSMENT: 1. Unspecified psychosis. 2. Unspecified dementia with behavior disturbances. PLAN: 1. Order an ammonia level. 2. Add Haldol 2 mg IM q.6 hours as needed for agitatoin. 3. DC Geodon p.r.n. IM. 4. Reduce and adjust Ativan from 1 mg IV q.6 as needed to 0.5 mg IM as needed. 5. DC Namenda. 6. Add Zyprexa 2.5 mg p.o. q.6 hours p.r.n. and adjust current Zyprexa. 7. Discussed with nursing staff. Thank you for this consultation. We will continue to follow the patient during his hospital stay. Dictated by Guillermina Georges PA-C Myesha Frausto MD QTV/MODL /[id number]
[2020-03-01] VITALS (9 sets, daily range): BP systolic 126–165; BP diastolic 76–100
[2020-03-01 05:36] LABS: BASOPHILS % 0.5 % (0.0-1.0); EOSINOPHILS # (AUTO) 0.2 (0.0-0.4); EOSINOPHILS % 3.1 % (0.0-6.0); HEMATOCRIT 27.8 % (38.2-49.6); HEMOGLOBIN 9.1 g/dL (14.0-18.0); LYMPHOCYTES # (AUTO) 1.5 (1.0-3.2); LYMPHOCYTES % 19.7 % (18.0-39.1); MEAN CORPUSCULAR HGB CONC 32.7 g/dL (31-35); MEAN CORPUSCULAR VOLUME 100.7 fL (81-99); MONOCYTES # (AUTO) 0.6 (0.2-0.8); MONOCYTES % 7.7 % (4.4-11.3); NEUTROPHILS # (AUTO) 5.2 (2.1-6.9); NEUTROPHILS % 68.5 % (38.7-80.0); PLATELET COUNT 189 x10e3/uL (140-360); RED BLOOD COUNT 2.76 x10e6/uL (4.3-5.7); RED CELL DISTRIBUTION WIDTH 16.2 % (11.7-14.4)
[2020-03-01] MEDS: PIPER-TAZ 3.375 GM 50 ML IV SCH (06:00)
--- NOTE | 2020-03-01 07:00 | NUR ---
BEDSIDE SHIFT REPORT RECEIVED FROM THE MOTOR ASSEMBLY SUPERVISOR RN. CALL LIGHT WITH IN EASY REACH. BED IS LOW AND LOCKED. SIDE RAILS X2. BED ALARM IS ON. SITTER AT BEDSIDE. PT IS AAOX0. PT IS RESTING ON BED. EYES ARE CLOSED. RESPIRATION EVEN AND UNLABORED. PT DENIES NEEDS AT THIS TIME.
[2020-03-01] MEDS: SODIUM CHLORIDE 0.45% 1,000 ML IV SCH ×2 (09:46→20:31)
[2020-03-01] MEDS: AMLODIPINE BESYLATE 10 MG TAB PO SCH (09:51)
[2020-03-01] MEDS: OLANZAPINE 5 MG TAB PO SCH ×2 (09:51→20:31)
[2020-03-01] MEDS: LORAZEPAM INJ 2 MG/ML VIAL IV PRN (12:01)
--- NOTE | 2020-03-01 12:08 | NUR ---
PT IS VERY AGITATED. PULLING IV . PAGETom DEAN.
[2020-03-01] MEDS: HYDRALAZINE HCL 20 MG/ML VIAL IV PRN (16:05)
--- NOTE | 2020-03-01 18:49 | NUR ---
Spoke to daughter via phone call and informed her of pts status and progress today with therapy. pt is partial hip replacement s/p 02-02-2020 d/c home 02-19-2020 with family where pt has fallen 3 x oob. daughter explains pt is combative and too difficult for the to care for pt at this time and would like father to receive therapy at a rehab/snf unit at some point after psych eval or treatment at [facility]. daughter has requested a call qd from therapy to touch base on pts progress with tx spoke to nurse melonie on [facility] that pt needs at [facility] to comply with post hip protocol. Addendum: 03/01/20 at 1858 by Avelino Torres PTA Amended: Links added.
--- NOTE | 2020-03-01 18:55 | NUR ---
Bedside report completed with morning nurse. Pt disoriented to name, place, and time. Sitter 1:1 at bedside. Bed low and locked. Bed alarm on. Will continue to monitor.
--- NOTE | 2020-03-01 19:00 | NUR ---
BEDSIDE SHIFT REPORT GIVEN TO THE PHYSICAL DIRECTOR RN. SITTER AT BEDSIDE.
[2020-03-02] VITALS (9 sets, daily range): BP systolic 109–155; BP diastolic 69–96
[2020-03-02] MEDS: LORAZEPAM INJ 2 MG/ML VIAL IV PRN ×2 (01:39→09:00)
[2020-03-02 05:41] LABS: ANION GAP 13.6 mmol/L (8-16); CALCIUM 8.3 mg/dL (8.4-10.2); CREATININE, SERUM 2.06 mg/dL (0.72-1.25); POTASSIUM 3.6 mmol/L (3.5-5.1)
[2020-03-02] MEDS: SODIUM CHLORIDE 0.45% 1,000 ML IV SCH ×2 (06:01→15:00)
--- NOTE | 2020-03-02 06:23 | NUR ---
Pt remains with 1:1 sitter at bedside. Uneventful night, no s/sx or reports of acute distress. Pt med with IV Lorazapam per MAR for increased agitation. Pt bathed turned and repositioned per staff. Will report off to oncoming shift nurse.
--- NOTE | 2020-03-02 07:00 | NUR ---
Received bedside shift report from off going nurse. Patient in stable condition, no s/s of distress noted. Sitter at bedside. IV fluids running @ 100 ml/hr. Abduction pillow applied to lower extremities. Bilateral Kerlix to upper extremities applied due to skin tears. Plaza [address] and patent draining into the drainage bag. Bed in lowest position and locked. Call light within reach.
[2020-03-02] MEDS: AMLODIPINE BESYLATE 10 MG TAB PO SCH (08:36)
[2020-03-02] MEDS: OLANZAPINE 5 MG TAB PO SCH ×2 (08:36→21:00)
--- NOTE | 2020-03-02 19:29 | NUR ---
Competed bedside shift report and rounding with oncoming nurse. Patient in stable condition, no s/s of distress noted. Sitter at bedside. IV fluids running @ 100 ml/hr. Abduction pillow applied to lower extremities. Bilateral Kerlix to upper extremities applied due to skin tears. Plaza [address] and patent draining into the drainage bag. Bed in lowest position and locked. Call light within reach.
--- NOTE | 2020-03-02 20:11 | NUR ---
Received pt in bed asleep, no s/sx of distress noted. Patient sitter at bedside. Bed in low position. Will cont to mon.
[2020-03-03] VITALS (7 sets, daily range): BP systolic 127–153; BP diastolic 72–89
[2020-03-03] MEDS: LORAZEPAM INJ 2 MG/ML VIAL IV PRN ×2 (00:11→22:56)
[2020-03-03] MEDS: SODIUM CHLORIDE 0.45% 1,000 ML IV SCH ×3 (00:15→21:00)
--- NOTE | 2020-03-03 06:20 | NUR ---
Patient in bed eyes closed mumbling. Pt respond when his name is called, denies discomfort. No s/sx of discomfort noted. Sitter at bedside. Ivf infusing no diff. Plaza cath patent, below bladder. Will pass report to on coming staff
--- NOTE | 2020-03-03 07:15 | NUR ---
PATIENT IN BED RESTING WITH WITH NO S/S OF DISTRESS. 1:1 SITTER AT BED SIDE. EPI INTACT TO LEFT HIP, ABDUCTOR PILLOW IN PLACE. VILLAFANA WITH YELLOW URINE. BED IN LOWER POSITION, CALL LIGHT AT REACH.
[2020-03-03] MEDS: OLANZAPINE 5 MG TAB PO SCH ×3 (09:07→21:00)
[2020-03-03] MEDS: AMLODIPINE BESYLATE 10 MG TAB PO SCH (09:07)
--- NOTE | 2020-03-03 09:28 | NUR ---
FAXED CLINICALS TO [facility], PT IS MEDICALLY CLEARED FOR DISCHARGE, WAITING ON AUTH.
--- NOTE | 2020-03-03 09:53 | NUR ---
SPOKE WITH DAUGHTER AND LET KNOW HAVE FAXED EVERYTHING TO [facility], EDUCATED ABOUT IMM SIGNED FORM AND FILE IN CHART. COMPLETED RTF AND PUT WITH PACKET, WAITING ON AUTH.
--- NOTE | 2020-03-03 11:01 | NUR ---
PT DENIED AT [facility]. CALLED DAUGHTER YANNI SHE STATES HER MOTHER WILL NOT AGREE TO A SNF, SHE WILL HAVE THE CONVERSATION WITH HER AND CALL ME BACK.
--- NOTE | 2020-03-03 11:03 | NUR ---
PATIENT REPOSITIONED IN BED BY 2 STAFFS. IV FLUID INFUSING ORDERED. BED IN LOWER POSITION, CALL LIGHT AT REACH.
--- NOTE | 2020-03-03 15:08 | Progress Note ---
DATE: 03/03/2020 Psychiatric Progress Note SUBJECTIVE: The patient is evaluated and events noted. The patient is in the room. He is confused, restless, pulling . He received p.r.n. Ativan multiple times over the weekend as well as this morning. Around midnight, he was taking his medication intermittently. He is agitated and waiting for inpatient psychiatry. Discussed with nurse staff. As per nursing staff, the patient was agitated and confused. Torter also reports the same thing. ASSESSMENT: 1. Unspecified psychosis. 2. Unspecified dementia with behavior disturbances. PLAN: 1. Continue with Haldol p.r.n. IM. 2. Continue p.r.n. Ativan IV. 3. Increase Zyprexa to 2.5 mg p.o. 3 times a day. 4. Add Depakene 125 mg p.o. b.i.d. 5. Monitor for agitation. Dictated by Guillermina Georges PA-C Myesha Frausto MD QTV/MODL /[id number]
--- NOTE | 2020-03-03 15:25 | NUR ---
OIL SCOUT IN TO SEE PATIENT, NEW ORDERS RECEIVED.
[2020-03-03 15:29] LABS: BASOPHILS % 0.3 % (0.0-1.0); EOSINOPHILS # (AUTO) 0.2 (0.0-0.4); EOSINOPHILS % 2.6 % (0.0-6.0); HEMATOCRIT 30.7 % (38.2-49.6); HEMOGLOBIN 10.4 g/dL (14.0-18.0); LYMPHOCYTES # (AUTO) 1.5 (1.0-3.2); LYMPHOCYTES % 20.5 % (18.0-39.1); MEAN CORPUSCULAR HEMOGLOBIN 32.9 pg (28-32); MEAN CORPUSCULAR HGB CONC 33.9 g/dL (31-35); MEAN CORPUSCULAR VOLUME 97.2 fL (81-99); MONOCYTES # (AUTO) 0.6 (0.2-0.8); MONOCYTES % 7.6 % (4.4-11.3); NEUTROPHILS % 68.1 % (38.7-80.0); PLATELET COUNT 180 x10e3/uL (140-360); RED BLOOD COUNT 3.16 x10e6/uL (4.3-5.7)
[2020-03-03 15:43] LABS: ANION GAP 14.5 mmol/L (8-16); CALCIUM 8.3 mg/dL (8.4-10.2); CREATININE, SERUM 1.72 mg/dL (0.72-1.25); POTASSIUM 3.5 mmol/L (3.5-5.1)
[2020-03-03] MEDS: VALPROATE 250MG/5ML ORAL LIQ 5ml PO SCH (17:05)
[2020-03-04] VITALS (9 sets, daily range): BP systolic 100–166; BP diastolic 64–95
[2020-03-04] MEDS: SODIUM CHLORIDE 0.45% 1,000 ML IV SCH (06:00)
--- NOTE | 2020-03-04 07:00 | NUR ---
RECEIVED PATIENT ASLEEP AT THIS TIME NO S/S OF DISTRESS. BED LOW, WHEELS LOCKED, SIDE RAILS X2. CALL LIGHT IN REACH WILL CONTINUE TO MONITOR PATIENT.
--- NOTE | 2020-03-04 09:05 | NUR ---
CALLED DAUGHTER YANNI LET HER KNOW THAT GOT A CALL LATE LAST NIGHT PT WAS AGAIN DENIED AT [facility]. WAITING TO SEE IF THEY WILL AGREE TO A SNF OR HOME.
[2020-03-04] MEDS: OLANZAPINE 5 MG TAB PO SCH ×3 (09:35→21:05)
[2020-03-04] MEDS: AMLODIPINE BESYLATE 10 MG TAB PO SCH (09:35)
[2020-03-04] MEDS: VALPROATE 250MG/5ML ORAL LIQ 5ml PO SCH ×2 (09:35→17:16)
--- NOTE | 2020-03-04 10:26 | NUR ---
SPOKE WITH DR AWAN AND DAUGHTER IN LAW YANNI, ALL IN AGREEMENT TO SPEAK WITH HOSPICE TO GO HOME. CHOSE [facility], SPOKE WITH PSYCH WHOM ADDRESSED THE CONCERNS FOR MEDICATIONS FOR THE BEHAVIORS AND DEMENTIA BROUGHT BY THE FAMILY. HOSPICE WILL BE ABLE TO CONTINUE WITH THE MEDICATIONS. FAMILY MEETING WITH HOSPICE AT 230. WILL UPDATE WHEN COMPLETE AND READY FOR DISCHARGE.
--- NOTE | 2020-03-04 11:36 | Progress Note ---
DATE: 03/04/2020 Psychiatric Progress Note SUBJECTIVE: The patient is evaluated and events noted. The patient is in the room. He is lying in the bed. He is calm, mildly restless, appears to be picking on his bandage area with a pen. He is trying to get out of bed. He is not combative. He received 1 dose of Ativan last night only, nothing this morning. Nursing staff confirmed that the patient has been calm today. He is getting his medication and no suicidal affect seen. Discussed with case management. Hospice has been initiated. The patient has been denied multiple times by inpatient psychiatry. ASSESSMENT: 1. Unspecified psychosis. 2. Unspecified dementia with behavior disturbances. PLAN: 1. Continue with Haldol p.r.n. IM. 2. Continue with p.r.n. Ativan IV. 3. Continue with Zyprexa 2.5 mg p.o. 3 times a day. 4. Continue with Depakene 125 mg p.o. b.i.d. 5. Monitor for agitation. Dictated by Guillermina Georges PA-C Myesha Frausto MD QTV/MODL /[id number]
--- NOTE | 2020-03-04 12:25 | NUR ---
REMOVED 36 EPI FROM LEFT HIP, STERI STRIPS APPLIED. PATIENT TOLERATED WELL.
[2020-03-04] MEDS: HYDRALAZINE HCL 20 MG/ML VIAL IV PRN (12:41)
--- NOTE | 2020-03-04 15:43 | NUR ---
PUT OUT OF HOSPITAL DNR ON CHART AND IN PACKET, SPOKE WITH HOSPICE, EQUIPMENT WILL BE DELIVERED BEFORE 12 TOMORROW AND TAKE DOWN INSPECTOR WILL BE BETWEEN 12 AND 2 HERE[address] HOSPICE SPOKE WITH DR AWAN AND HE IS IN AGREEMENT.
[2020-03-05] MEDS: LORAZEPAM INJ 2 MG/ML VIAL IV PRN (00:44)
[2020-03-05 01:07] VITALS: BP 120/65
[2020-03-05 05:08] LABS: BASOPHILS % 0.2 % (0.0-1.0); EOSINOPHILS # (AUTO) 0.1 (0.0-0.4); EOSINOPHILS % 0.8 % (0.0-6.0); HEMATOCRIT 30.4 % (38.2-49.6); HEMOGLOBIN 10.1 g/dL (14.0-18.0); LYMPHOCYTES # (AUTO) 1.4 (1.0-3.2); LYMPHOCYTES % 14.3 % (18.0-39.1); MEAN CORPUSCULAR HEMOGLOBIN 32.4 pg (28-32); MEAN CORPUSCULAR HGB CONC 33.2 g/dL (31-35); MEAN CORPUSCULAR VOLUME 97.4 fL (81-99); MONOCYTES # (AUTO) 0.6 (0.2-0.8); MONOCYTES % 5.9 % (4.4-11.3); NEUTROPHILS # (AUTO) 7.5 (2.1-6.9); NEUTROPHILS % 78.2 % (38.7-80.0); PLATELET COUNT 191 x10e3/uL (140-360); RED BLOOD COUNT 3.12 x10e6/uL (4.3-5.7); RED CELL DISTRIBUTION WIDTH 15.4 % (11.7-14.4)
[2020-03-05 05:14] VITALS: BP 153/80
[2020-03-05 05:42] LABS: ANION GAP 12.6 mmol/L (8-16); CALCIUM 8.5 mg/dL (8.4-10.2); CREATININE, SERUM 1.66 mg/dL (0.72-1.25); POTASSIUM 3.6 mmol/L (3.5-5.1)
[2020-03-05 08:00] VITALS: BP 142/77
[2020-03-05 08:15] VITALS: BP 142/77
[2020-03-05] MEDS: VALPROATE 250MG/5ML ORAL LIQ 5ml PO SCH (09:00)
[2020-03-05] MEDS: AMLODIPINE BESYLATE 10 MG TAB PO SCH (09:00)
[2020-03-05] MEDS: OLANZAPINE 5 MG TAB PO SCH ×2 (09:00→15:00)
[2020-03-05 12:00] VITALS: BP 150/81
--- NOTE | 2020-03-05 14:13 | NUR ---
spoke to patient's daughter Cata. everything is ready for the patient at their home through the hospice company. transportation arranged to be here at 1430. patient awaiting transport at this time. sanket.
--- NOTE | 2020-03-05 14:38 | NUR ---
all wounds to upper extremities cleansed and new dressings applied. telemetry removed & returned.
--- NOTE | 2020-03-05 16:01 | NUR ---
patient transported off unit in stable condition to home.
--- NOTE | 2020-03-13 11:43 | Progress Note ---
DATE: 03/06/2020 Psychiatric Progress Note SUBJECTIVE: The patient evaluated and events noted. The patient is in the room. He is doing fair. He is intermittently restless. He is less combative. He is unable to answer any questions. Family members have decided to have the patient sent home on hospice care. He is getting medication intermittently and no serious side effects seen or reported. ASSESSMENT: 1. Unspecified psychosis. 2. Unspecified dementia with behavior disturbances. PLAN: 1. Continue Zyprexa 2.5 mg p.o. 3 times a day. 2. Continue with Depakote 125 mg p.o. b.i.d. 3. Continue Ativan and Haldol p.r.n. IM. 4. Monitor for agitation. Dictated by Guillermina Georges PA-C Myesha Frausto MD QTV/MODL /[id number]
== END 2020-03-05 16:01 | DRG 884 ==
LOC: ER 00:02 → ERHOLD 01:18 → MED/SURG2 07:16
PROVIDERS: ADMIT Internal Medicine; ATTEND Internal Medicine
DX: F03.91 Unspecified dementia, unspecified severity, with behavioral disturbance (principal); E43 Unspecified severe protein-calorie malnutrition; Z68.1 Body mass index [BMI] 19.9 or less, adult; E44.0 Moderate protein-calorie malnutrition; N17.9 Acute kidney failure, unspecified; S37.39XA Other injury of urethra, initial encounter; R45.1 Restlessness and agitation; R62.7 Adult failure to thrive; N40.1 Benign prostatic hyperplasia with lower urinary tract symptoms; R33.8 Other retention of urine; N28.1 Cyst of kidney, acquired; N28.89 Other specified disorders of kidney and ureter; Z66 Do not resuscitate; I12.9 Hypertensive chronic kidney disease with stage 1 through stage 4 chronic kidney disease, or unspecified chronic kidney disease; N18.9 Chronic kidney disease, unspecified
CPT/HCPCS: 36415; 51700; 80048; 80053; 81001; 82140; 82607; 82746; 82948; 85025; 87086; 93005; 96361; 96372; 96374; 97139; 99251; 99284; J0360; J2060; J2543; J3486; J7030